=== PATIENT | female | born 1945 | race Caucasian/White ===

== ENCOUNTER → 2020-02-29 | Outpatient (CLI) | payer MEDICARE ==
[2020-02-29 11:13] LABS: Basophils % (A) 1 %; Eosinophils # (A) 0.1 k/uL (0-0.7); Eosinophils % (A) 3 %; HCT 39.9 % (34.0-46.0); HGB 12.4 gm/dL (11.4-16.0); Lymphocytes # (A) 1.1 k/uL (1.0-4.8); Lymphocytes % (A) 24 %; MCV 96.8 fL (80.0-100.0); Mean Platelet Volume 7.5; Monocytes # (A) 0.3 k/uL (0-1.0); Monocytes % (A) 6 %; Neutrophils # (A) 3.1 k/uL (1.3-7.7); Neutrophils % (A) 66 %; Platelet Count 210 k/uL (150-450); RBC 4.13 m/uL (3.80-5.40); RDW 12.8 % (11.5-15.5); WBC 4.8 k/uL (3.8-10.6)
[2020-02-29 16:46] LABS: % Iron Saturation 37.62 (12.00-45.00); African American GFR (CKD) 63.8 (60.0-200.0); Albumin 4.2 g/dL (3.80-4.90); Albumin/Globulin Ratio 1.91 (1.60-3.17); Anion Gap 8.3 mmol/L (4.00-12.00); Calcium 9.6 mg/dL (8.7-10.3); Carbon Dioxide 26.7 mmol/L (21.6-31.8); Globulin 2.2 g/dL (1.6-3.3); Non-African American GFR(CKD) 55.1 (60.0-200.0); Potassium 4.5 mmol/L (3.5-5.5); Total Bilirubin 0.6 mg/dL (0.2-1.2); Total Protein 6.4 g/dL (6.2-8.2)
[2020-02-29 16:54] LABS: Ferritin 130.3 ng/mL (10.0-291.0)
== END | disposition home or self-care (01) ==
LOC: LABWHC1 09:46
PROVIDERS: ATTEND Family Medicine
DX: D64.9 Anemia, unspecified (principal); R79.1 Abnormal coagulation profile
CPT/HCPCS: 36415; 80053; 82728; 83540; 83550; 85025; 85379

== ENCOUNTER 2021-05-21 19:58 | Emergency (ER) | payer MEDICARE ==
--- NOTE | 2021-05-21 21:14 | ED ---
SOB HPI - General Chief Complaint: Shortness of Breath Stated Complaint: COVID+,Weakness Time Seen by Provider: 05/21/21 20:54 Source: patient Mode of arrival: ambulatory Limitations: no limitations - History of Present Illness MD Complaint: shortness of breath, cough -: days(s) Severity scale (1-10): 0 Consistency: constant Improves With: nothing Worsens With: nothing Treatments Prior to Arrival: other - Related Data Home Medications Medication Instructions Recorded Confirmed Alendronate Sodium [Fosamax] 70 mg PO JOHNSON 05/21/21 05/21/21 Ipratropium Ang[place] 0.06%Nasal 1 spray EA NOSTRIL BID PRN 05/21/21 05/21/21 [Atrovent Nasal 0.06%] Levothyroxine Sodium [Synthroid] 100 mcg PO DAILY 05/21/21 05/21/21 Simvastatin [Zocor] 20 mg PO HS 05/21/21 05/21/21 Venlafaxine HCl [Effexor XR] 75 mg PO HS 05/21/21 05/21/21 lisinopriL 10 mg PO DAILY 05/21/21 05/21/21 Allergies Allergy/AdvReac Type Severity Reaction Status Date / Time No Known Allergies Allergy Verified 05/21/21 22:17 Review of Systems ROS Statement: Those systems with pertinent positive or pertinent negative responses have been documented in the HPI. ROS Other: All systems not noted in ROS Statement are negative. Past Medical History Past Medical History: Hypertension Additional Past Medical History / Comment(s): hypercholestremia, Hypythoridism, anxiety History of Any Multi-Drug Resistant Organisms: None Reported Past Surgical History: No Surgical Hx Reported Past Psychological History: Anxiety Smoking Status: Never smoker Past Alcohol Use History: None Reported Past Drug Use History: None Reported General Exam Limitations: no limitations General appearance: alert, in no apparent distress Head exam: Present: atraumatic, normocephalic Eye exam: Present: normal appearance. Absent: scleral icterus, conjunctival injection ENT exam: Present: normal oropharynx Neck exam: Present: normal inspection, full ROM. Absent: meningismus Respiratory exam: Present: normal lung sounds bilaterally. Absent: respiratory distress, wheezes, rales, rhonchi, stridor, accessory muscle use, decreased breath sounds, prolonged expiratory Cardiovascular Exam: Present: regular rate, normal rhythm, normal heart sounds. Absent: systolic murmur, diastolic murmur, rubs, gallop GI/Abdominal exam: Present: soft. Absent: distended, tenderness, guarding, rebound, rigid, mass Extremities exam: Present: normal inspection, normal capillary refill. Absent: pedal edema, calf tenderness Back exam: Present: normal inspection. Absent: CVA tenderness (R), CVA tenderness (L) Neurological exam: Present: alert Skin exam: Present: warm, dry, intact, normal color. Absent: rash Course Vital Signs 05/21/21 05/22/21 20:31 00:01 Temperature 98.8 F 99.6 F Pulse Rate 96 Respiratory 20 Rate Blood Pressure 151/80 151/69 O2 Sat by Pulse 96 Oximetry Medical Decision Making - Lab Data Lab Results 05/21/21 Range/Units 22:13 Coronavirus (PCR) Detected A (Not Detectd) Disposition Clinical Impression: COVID-19 Disposition: HOME SELF-CARE Condition: Good Instructions (If sedation given, give patient instructions): Coronavirus Disease 2019 (COVID-19) Is patient prescribed a controlled substance at d/c from ED?: No Referrals: Sally Lamar MD [Primary Care Provider] - 1-2 days
[2021-05-21] MEDS ORDERED: CASIRIVIMAB (REGN10933) (EUA) 600 MG, IMDEVIMAB (REGN10987) (EUA) 600 MG in SODIUM CHLO... IVPB ONE (23:15)
[2021-05-21] MEDS ORDERED: SODIUM CHLORIDE 0.9% 50 ML IVPB ONE (23:15)
[2021-05-22 00:01] VITALS: BP 151/69
[2021-05-22 01:29] VITALS: PULSE 93; RESP 18; TEMP 98.8
== END 2021-05-22 01:34 | disposition home or self-care (01) ==
LOC: EC 19:58
DX: U07.1 COVID-19 (principal); I10 Essential (primary) hypertension; F41.9 Anxiety disorder, unspecified; E03.9 Hypothyroidism, unspecified; E78.00 Pure hypercholesterolemia, unspecified
CPT/HCPCS: 99284; 87635; Q0243

== ENCOUNTER → 2021-09-26 | Outpatient (CLI) | payer MEDICARE ==
[2021-09-26 12:13] LABS: ALT 26 U/L (4-34); AST 28 U/L (14-36); African American GFR (CKD) 89 (>60 ml/min/1.73 sqM); Albumin 4.3 g/dL (3.5-5.0); Albumin/Globulin Ratio 1.6; Alkaline Phosphatase 65 U/L (38-126); Anion Gap 6 mmol/L; Blood Urea Nitrogen 20 mg/dL (7-17); Calcium 9.3 mg/dL (8.4-10.2); Carbon Dioxide 29 mmol/L (22-30); Chloride 103 mmol/L (98-107); Globulin 2.7 g/dL; Glucose 111 mg/dL (74-99); Non-African American GFR(CKD) 77 (>60 ml/min/1.73 sqM); Potassium 4.6 mmol/L (3.5-5.1); Sodium 138 mmol/L (137-145); Total Bilirubin 0.4 mg/dL (0.2-1.3)
[2021-09-26 12:19] LABS: T4, Free (Free Thyroxine) 1.06 ng/dL (0.78-2.19)
--- NOTE | 2021-09-26 13:07 | CT ---
EXAMINATION TYPE: CT angio chest DATE OF EXAM: 09/26/2021 12:54 PM COMPARISON: None HISTORY: Shortness of breath. History of covid. CT DLP: 443 mGycm Automated exposure control for dose reduction was used. CONTRAST: CTA scan of the thorax is performed with IV Contrast, patient injected with 59ml mL of Isovue 370, pu lmonary embolism protocol. . FINDINGS: LUNGS: The lungs are grossly clear, there is no concerning parenchymal mass or nodule identified. T here is no pleural effusion or pneumothorax seen. The tracheobronchial tree is patent. Biapical pleu ral thickening and areas of subpleural nodularity which are nonspecific measuring less than centimete r and too small to characterize. The 4 mm nodule right lower lobe axial image 67. The 4 mm nodule left upper lobe axial image through 7 mm calcified suggestive of granuloma. MEDIASTINUM: There is satisfactory enhancement of the pulmonary artery and its branches, there is no CT evidence for pulmonary embolism. There are no greater than 1 cm hilar or mediastinal lymph nodes. Mild atherosclerotic change of the aorta. Aorta of normal caliber and there is coronary artery calci fication. OTHER: Small hiatal hernia. Hypertrophic and degenerative changes spine. Chronic deformity of the po sterior rib cage on the right axial image 52 adjacent subpleural nodule. Calcification or metallic de nsity adjacent to the right margin of the distal esophagus is indeterminate. IMPRESSION: 1. No diagnostic evidence of pulmonary embolism. 2. Coronary artery calcification. Correlate for atherosclerotic disease. 3. Multiple subcentimeter pulmonary nodules similar recommend follow-up exam in 6 months to confirm s tability.
[2021-09-26 20:09] LABS: Basophils # (A) 0.03 X 10*3/uL (0.00-0.10); Basophils % (A) 0.5 %; Eosinophils # (A) 0.06 X 10*3/uL (0.04-0.35); Eosinophils % (A) 0.9 %; HGB 12.9 g/dL (12.0-15.0); Immature Grans, Automated 0.2 %; Lymphocytes # (A) 1.58 X 10*3/uL (0.90-5.00); Lymphocytes % (A) 24.8 %; MCH 29.5 pg (27.0-32.0); MCHC 31.5 g/dL (32.0-37.0); MCV 93.6 fL (80.0-97.0); Mean Platelet Volume 10.1 fL (9.5-12.2); Monocytes # (A) 0.59 X 10*3/uL (0.20-1.00); Monocytes % (A) 9.3 %; NRBC Per 100 WBC 0 /100 WBCS (0.0-0.0); Neutrophils % (A) 64.3 %; Platelet Count 210 X 10*3/uL (140-440); RBC 4.38 X 10*6/uL (4.10-5.20); RDW 13.2 % (11.5-14.5); WBC 6.37 X 10*3/uL (4.50-10.00)
[2021-09-26 21:36] LABS: Erythrocyte Sedimentation Rate 7 mm/Hr (0-30)
== END | disposition home or self-care (01) ==
LOC: RADCTMAIN 11:14
PROVIDERS: ATTEND Internal Medicine
DX: I25.10 Atherosclerotic heart disease of native coronary artery without angina pectoris (principal); R91.8 Other nonspecific abnormal finding of lung field
CPT/HCPCS: 85379; 84439; 80053; 85652; 82533; 84443; 85025; 82306; 86038; 71275; Q9967

== ENCOUNTER → 2022-04-25 | Outpatient (CLI) | payer MEDICARE ==
[2022-04-25 18:10] LABS: African American GFR (CKD) >90 (>60 ml/min/1.73 sqM); Blood Urea Nitrogen 20 mg/dL (7-17); Non-African American GFR(CKD) 84 (>60 ml/min/1.73 sqM)
--- NOTE | 2022-04-27 11:26 | CT ---
EXAMINATION TYPE: CT chest w con CT DLP: 264.9 mGycm, Automated exposure control for dose reduction was used. DATE OF EXAM: 04/25/2022 7:08 PM COMPARISON: CT Angio chest 09/26/2021 CLINICAL INDICATION:Female, 76 years old with history of R91.1 nodule;, Nodules on left lobe of lung TECHNIQUE: Multiple axial images were obtained through the chest. Sagittal and coronal reformats were created for review. Contrast used:70cc mL of Isovue 300 with IV Contrast. Oral contrast used: none. FINDINGS: LUNGS/ PLEURA: No focal consolidation, pneumothorax or pleural effusion. Stable right lower lobe calc ified granulomas. Stable left upper lobe calcified granuloma. No new or enlarging lymph nodes identif ied. Apical scarring most pronounced on the right. AIRWAY: Patent and unremarkable. HEART: Size within normal limits. MEDIASTINUM: No gross evidence of adenopathy. VASCULATURE: No aortic aneurysm. MUSCULOSKELETAL: No acute osseous abnormalities, multilevel disc degeneration changes throughout the spine. SOFT TISSUES/LYMPH NODES: Unremarkable. LOWER NECK: No significant findings. UPPER ABDOMEN: No significant findings. IMPRESSION: Stable calcified granulomas without evidence for new or enlarging pulmonary nodule. No follow-up CT r ecommended for these calcified granulomas.
== END | disposition home or self-care (01) ==
LOC: RADCTMAIN 17:14
PROVIDERS: ATTEND Internal Medicine
DX: J84.10 Pulmonary fibrosis, unspecified (principal)
CPT/HCPCS: 82565; 84520; 71260; 36415; Q9967

== ENCOUNTER → 2022-04-26 | Outpatient (CLI) | payer MEDICARE | END | disposition home or self-care (01) | LOC: LABWHC1 08:37 | PROVIDERS: ATTEND Internal Medicine | DX: E27.40 Unspecified adrenocortical insufficiency (principal) | CPT/HCPCS: 36415; 82533 ==

== ENCOUNTER 2022-08-27 09:35 | Observation (INO) | payer MEDICARE ==
--- NOTE | 2022-08-27 10:43 | CT ---
EXAMINATION TYPE: CT brain wo con for TPA DATE OF EXAM: 08/27/2022 COMPARISON: None HISTORY: 77-year-old female Right sided weakness, neuro deficits TECHNIQUE: Examination was done in axial plane without intravenous contrast. Coronal and sagittal r econstructions performed. CT DLP: 1102.3 mGycm Automated exposure control for dose reduction was used. FINDINGS: There is no evidence of acute intracranial hemorrhage, acute ischemic changes, mass, mass-effect, or extra-axial fluid collection. There is no effacement of cerebral sulci or basal subarachnoid cister ns. There is no hydrocephalus. There is no midline shift. Yu-white matter distinction is preserv ed. Benign bilateral basal ganglionic calcifications. Partially empty sella. Moderate patchy white matter hypodensities in both cerebral hemispheres suggesting changes of chronic small vessel ischemic disease. Suspect prior facets. Rightward nasal septal deviation. Scattered mild also thickening ethmoid air ce lls. Mastoid air cells well pneumatized. IMPRESSION: Moderate patchy burden of chronic small vessel ischemic disease. No acute intracranial abnormality se en.
[2022-08-27 10:46] LABS: Basophils % (A) 0 %; Eosinophils # (A) 0.2 k/uL (0-0.7); Eosinophils % (A) 5 %; HCT 40.8 % (34.0-46.0); HGB 13.6 gm/dL (11.4-16.0); Lymphocytes % (A) 22 %; MCH 30.5 pg (25.0-35.0); MCHC 33.4 g/dL (31.0-37.0); MCV 91.4 fL (80.0-100.0); Mean Platelet Volume 7.6; Monocytes # (A) 0.3 k/uL (0-1.0); Monocytes % (A) 6 %; Neutrophils # (A) 2.9 k/uL (1.3-7.7); Neutrophils % (A) 63 %; Platelet Count 179 k/uL (150-450); RBC 4.46 m/uL (3.80-5.40); WBC 4.5 k/uL (3.8-10.6)
--- NOTE | 2022-08-27 11:01 | CT ---
EXAMINATION TYPE: CT angio head neck DATE OF EXAM: 08/27/2022 COMPARISON: CT head same day HISTORY: 77-year-old female Right sided weakness TECHNIQUE: Contiguous axial scanning of the head a neck performed with IV Contrast, patient injected with 65 mL of Isovue 370. Coronal/sagittal MIP reconstructions performed. 3-D reconstructions generat ed on a dedicated independent workstation. CT DLP: 390.1 mGycm Automated exposure control for dose reduction was used. FINDINGS: NECK: Some mosaic attenuation and septal lines in the upper lungs. Consider small airways disease or mild p ulmonary vascular congestion. Bovine configuration to the aortic arch. Both vertebral arteries are codominant and patent throughout their course. The bilateral common and internal carotid arteries are widely patent by NASCET criteria. HEAD: The bilateral vertebral and basilar arteries are patent. 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 Otherwise, the posterior circulation appears patent. The internal carotid arteries and remainder of the anterior circulation is patent. No aneurysmal changes seen. Dural venous sinuses are patent. IMPRESSION: 1. NECK: WIDELY PATENT CAROTID AND VERTEBRAL ARTERIES OF THE NECK. SOME MOSAIC ATTENUATION AND SEPTAL LINES IN THE UPPER LUNGS. CONSIDER SMALL AIRWAYS DISEASE VERSUS MILD PULMONARY VASCULAR CONGESTION. 2. HEAD: NO LARGE VESSEL INTRACRANIAL ARTERIAL OCCLUSION, SIGNIFICANT STENOSIS, OR ANEURYSMAL CHANGES SEEN. 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
[2022-08-27 11:02] LABS: ALT 23 U/L (4-34); AST 28 U/L (14-36); African American GFR (CKD) >90 (>60 ml/min/1.73 sqM); Albumin 4.2 g/dL (3.5-5.0); Alkaline Phosphatase 71 U/L (38-126); Anion Gap 6 mmol/L; Blood Urea Nitrogen 24 mg/dL (7-17); Carbon Dioxide 27 mmol/L (22-30); Chloride 105 mmol/L (98-107); Glucose 118 mg/dL (74-99); Non-African American GFR(CKD) 84 (>60 ml/min/1.73 sqM); Potassium 4.8 mmol/L (3.5-5.1); Sodium 138 mmol/L (137-145); Total Bilirubin 0.5 mg/dL (0.2-1.3); Total Protein 6.8 g/dL (6.3-8.2)
[2022-08-27 11:40] LABS: Partial Thromboplastin Time 24.5 sec (22.0-30.0); Prothrombin Time 10.4 sec (9.0-12.0)
--- NOTE | 2022-08-27 12:22 | XR ---
EXAMINATION TYPE: XR chest 2V DATE OF EXAM: 08/27/2022 COMPARISON: None HISTORY: 77-year-old female confusion, altered mental status TECHNIQUE: AP and lateral views FINDINGS: Hazy densities relating to overlying soft tissue. Heart normal size. Aorta and pulmonary vasculature within normal limits. No consolidation or pleural effusion seen. IMPRESSION: No acute cardiopulmonary process.
--- NOTE | 2022-08-27 13:59 | ED ---
Neuro HPI - General Chief Complaint: Neuro Symptoms/Deficit Stated Complaint: right side weakness Time Seen by Provider: 08/27/22 09:48 Source: patient Mode of arrival: ambulatory Limitations: no limitations - History of Present Illness Is the patient presenting with stroke symptoms?: Yes Initial Comments: Patient complains of malaise and right-sided weakness. [facility] she is no longer weak. She has no chest or belly or back pain. She has no nausea or vomiting. She has no focal weakness. She has no paresthesias. - Related Data Home Medications: Home Medications Medication Instructions Recorded Confirmed Levothyroxine Sodium [Synthroid] 100 mcg PO MOTUWETHFRSA 05/21/21 08/27/22 Simvastatin [Zocor] 20 mg PO HS 05/21/21 08/27/22 lisinopriL [Prinivil] 10 mg PO DAILY 05/21/21 08/27/22 Alendronate Sodium [Fosamax] 70 mg PO JHONSON 08/27/22 08/27/22 Calcium Carbonate [Calcium] 1,200 mg PO HS 08/27/22 08/27/22 Multivitamins, Thera [Multivitamin 1 tab PO HS 08/27/22 08/27/22 (formulary)] Super B Complex W/ Vitamin C 1 tab PO QAM 08/27/22 08/27/22 Vitamin C/Biotin [Hair, Skin and 1 tab PO HS 08/27/22 08/27/22 Nails Chew] Allergies/Adverse Reactions: Allergies Allergy/AdvReac Type Severity Reaction Status Date / Time No Known Allergies Allergy Verified 08/27/22 11:16 Review of Systems ROS Statement: Those systems with pertinent positive or pertinent negative responses have been documented in the HPI. ROS Other: All systems not noted in ROS Statement are negative. General Exam Limitations: no limitations General appearance: alert, in no apparent distress Head exam: Present: atraumatic, normocephalic, normal inspection Eye exam: Present: normal appearance, PERRL, EOMI. Absent: scleral icterus, conjunctival injection, periorbital swelling ENT exam: Present: normal exam, mucous membranes moist Neck exam: Present: normal inspection. Absent: tenderness, meningismus, lymphadenopathy Respiratory exam: Present: normal lung sounds bilaterally. Absent: respiratory distress, wheezes, rales, rhonchi, stridor Cardiovascular Exam: Present: regular rate, normal rhythm, normal heart sounds. Absent: systolic murmur, diastolic murmur, rubs, gallop, clicks GI/Abdominal exam: Present: soft, normal bowel sounds. Absent: distended, tenderness, guarding, rebound, rigid Extremities exam: Present: normal inspection, full ROM, normal capillary refill. Absent: tenderness, pedal edema, joint swelling, calf tenderness Back exam: Present: normal inspection Neurological exam: Present: alert, oriented X3, CN II-XII intact Psychiatric exam: Present: normal affect, normal mood Skin exam: Present: warm, dry, intact, normal color. Absent: rash Stroke MDM - Lab Data Result diagrams: 08/27/22 10:22 08/27/22 10:22 Lab Results 08/27/22 08/27/22 08/27/22 Range/Units 10:22 10:22 10:22 WBC 4.5 (3.8-10.6) k/uL RBC 4.46 (3.80-5.40) m/uL Hgb 13.6 (11.4-16.0) gm/dL Hct 40.8 (34.0-46.0) % MCV 91.4 (80.0-100.0) fL MCH 30.5 (25.0-35.0) pg MCHC 33.4 (31.0-37.0) g/dL RDW 13.0 (11.5-15.5) % Plt Count 179 (150-450) k/uL MPV 7.6 Neutrophils % 63 % Lymphocytes % 22 % Monocytes % 6 % Eosinophils % 5 % Basophils % 0 % Neutrophils # 2.9 (1.3-7.7) k/uL Lymphocytes # 1.0 (1.0-4.8) k/uL Monocytes # 0.3 (0-1.0) k/uL Eosinophils # 0.2 (0-0.7) k/uL Basophils # 0.0 (0-0.2) k/uL PT 10.4 (9.0-12.0) sec INR 1.0 (<1.2) APTT 24.5 (22.0-30.0) sec Sodium 138 (137-145) mmol/L Potassium 4.8 (3.5-5.1) mmol/L Chloride 105 (98-107) mmol/L Carbon Dioxide 27 (22-30) mmol/L Anion Gap 6 mmol/L BUN 24 H (7-17) mg/dL Creatinine 0.69 (0.52-1.04) mg/dL Est GFR (CKD-EPI)AfAm >90 (>60 ml/min/1.73 sqM) Est GFR (CKD-EPI)NonAf 84 (>60 ml/min/1.73 sqM) Glucose 118 H (74-99) mg/dL Calcium 9.0 (8.4-10.2) mg/dL Total Bilirubin 0.5 (0.2-1.3) mg/dL AST 28 (14-36) U/L ALT 23 (4-34) U/L Alkaline Phosphatase 71 (38-126) U/L Troponin I (0.000-0.034) ng/mL Total Protein 6.8 (6.3-8.2) g/dL Albumin 4.2 (3.5-5.0) g/dL 08/27/22 Range/Units 10:22 WBC (3.8-10.6) k/uL RBC (3.80-5.40) m/uL Hgb (11.4-16.0) gm/dL Hct (34.0-46.0) % MCV (80.0-100.0) fL MCH (25.0-35.0) pg MCHC (31.0-37.0) g/dL RDW (11.5-15.5) % Plt Count (150-450) k/uL MPV Neutrophils % % Lymphocytes % % Monocytes % % Eosinophils % % Basophils % % Neutrophils # (1.3-7.7) k/uL Lymphocytes # (1.0-4.8) k/uL Monocytes # (0-1.0) k/uL Eosinophils # (0-0.7) k/uL Basophils # (0-0.2) k/uL PT (9.0-12.0) sec INR (<1.2) APTT (22.0-30.0) sec Sodium (137-145) mmol/L Potassium (3.5-5.1) mmol/L Chloride (98-107) mmol/L Carbon Dioxide (22-30) mmol/L Anion Gap mmol/L BUN (7-17) mg/dL Creatinine (0.52-1.04) mg/dL Est GFR (CKD-EPI)AfAm (>60 ml/min/1.73 sqM) Est GFR (CKD-EPI)NonAf (>60 ml/min/1.73 sqM) Glucose (74-99) mg/dL Calcium (8.4-10.2) mg/dL Total Bilirubin (0.2-1.3) mg/dL AST (14-36) U/L ALT (4-34) U/L Alkaline Phosphatase (38-126) U/L Troponin I <0.012 (0.000-0.034) ng/mL Total Protein (6.3-8.2) g/dL Albumin (3.5-5.0) g/dL - Medical Decision Making Patient presents with weakness. I did obtain independent history from a family member. I obtained a CT the head which was independent reviewed by me and read as showing evidence of old stroke, but no acute bleed or mass. Laboratory studies are interpreted by me as normal electrolytes and kidney functioning. I have placed a consultation to neurology. Given that the patient has had evidence of old stroke I would like to admit her. I had a discussion with the family and patient agree with the admission. 08/27/22 13:58 Twelve-lead EKG shows ventricular rate 96 bpm, normal GA interval and QRS complex, no ST elevation or depression, interpreted by me as normal sinus rhythm. Past Medical History Past Medical History: Hypertension Additional Past Medical History / Comment(s): hypercholestremia, Hypythoridism, anxiety , Covid History of Any Multi-Drug Resistant Organisms: None Reported Past Surgical History: No Surgical Hx Reported Past Psychological History: Anxiety Smoking Status: Never smoker Past Alcohol Use History: None Reported Past Drug Use History: None Reported Course Vital Signs 08/27/22 08/27/22 08/27/22 09:40 10:10 10:49 Temperature 98.2 F Pulse Rate 109 H 90 96 Respiratory 18 18 18 Rate Blood Pressure 149/82 115/57 O2 Sat by Pulse 96 96 94 L Oximetry 08/27/22 08/27/22 11:00 11:30 Temperature Pulse Rate 87 86 Respiratory 18 18 Rate Blood Pressure 128/65 126/65 O2 Sat by Pulse 92 L 93 L Oximetry Disposition Clinical Impression: Transient cerebral ischemia Disposition: ADMITTED IP TO THIS HOSP Condition: Fair Is patient prescribed a controlled substance at d/c from ED?: No Referrals: Sally Lamar MD [Primary Care Provider] - 1-2 days
[2022-08-27] MEDS ORDERED: ONDANSETRON 4 MG/2 ML VIAL IVP PRN (14:11)
[2022-08-27] MEDS ORDERED: MAG HYDROX/AL HYDROX/SIMETH 30 ML CUP PO PRN (14:11)
[2022-08-27] MEDS ORDERED: NALOXONE 0.4 MG/ML 1 ML VIAL IV PRN ×2 (14:11→15:44)
[2022-08-27] MEDS ORDERED: TEMAZEPAM 15 MG CAP PO PRN (14:11)
--- NOTE | 2022-08-27 15:49 | P.HPIM ---
History of Present Illness H&P Date: 08/27/22 Chief Complaint: TIA Patient is a 77-year-old female with history of hypertension, dyslipidemia, hypothyroidism presenting with strokelike symptoms. She claims that her daughter started to notice slow speech last night around 8:00. She went to bed at that time, woke up this morning with right-sided weakness. She denies any numbness. She is having difficulty walking due to lower extremity weakness. She denies any chest pain, shortness of breath, abdominal pain, nausea, vomiting, diarrhea, constipation, palpitations, lightheadedness, fevers, chills, recent travel history, or sick contacts. In the ED, her vital signs have been within normal limits. Laboratory workup mostly unremarkable except for elevated BUN at 24. EKG showed normal sinus rhy thm reviewed by me. CT head report showed moderate patchy burden of chronic small vessel ischemic disease, no acute intracranial abnormality seen. CTA head and neck no significant carotid, vertebral artery stenosis, or intracranial arterial occlusions. Chest x-ray showed no acute process. Patient seen and examined at bedside. Pertinent positives and negatives as discussed in HPI, a complete review of systems was performed and all other systems are negative. Vital signs reviewed General: nontoxic, no distress, appears at stated age Derm: warm, dry Head: atraumatic, normocephalic, symmetric Eyes: EOMI, no lid lag, anicteric sclera, pupils equal round reactive to light ENT: Nose and ears atraumatic Neck: No thyromegaly, supple Mouth: no lip lesion, mucus membranes moist Cardiovascular: S1S2 reg, no murmur, no edema Lungs: clear to auscultation bilateral, no rhonchi, no rales, no wheeze, no accessory muscle use Abdominal: soft, nontender to palpation, no guarding, no appreciable organomegaly Ext: no gross muscle atrophy, muscle strength muscle strength 5 out of 5 in all 4 extremities, no contractures Neuro: CN II-XII grossly intact Psych: Alert, oriented, appropriate affect Assessment/Plan: TIA -Neuro checks -Telemetry -A1c, TSH, lipid panel, echocardiogram -Neurology consult -Aspirin and statin - MRI pending Right groin pain - likely neuropathic - outpatient follow up Chronic medical problems: Hypertension Hypothyroidism HLD -Continue home medications The patient is admitted with an anticipated less than 2 midnight stay for evaluation of TIA. Surrogate decision-maker: Daughter CODE STATUS: Full code DVT prophylaxis: Subcu heparin Anticipated discharge date: tomorrow Anticipated discharge place: Home A total of 57 minutes was spent on the care of this complex patient more than 50% of the time was spent in counseling and care coordination. Past Medical History Past Medical History: Hypertension Additional Past Medical History / Comment(s): hypercholestremia, Hypythoridism, anxiety , Covid History of Any Multi-Drug Resistant Organisms: None Reported Past Surgical History: No Surgical Hx Reported Past Psychological History: Anxiety Smoking Status: Never smoker Past Alcohol Use History: None Reported Past Drug Use History: None Reported Medications and Allergies Home Medications Medication Instructions Recorded Confirmed Type Levothyroxine Sodium [Synthroid] 100 mcg PO MOTUWETHFRSA 05/21/21 08/27/22 History Simvastatin [Zocor] 20 mg PO HS 05/21/21 08/27/22 History lisinopriL [Prinivil] 10 mg PO DAILY 05/21/21 08/27/22 History Alendronate Sodium [Fosamax] 70 mg PO JOHNSON 08/27/22 08/27/22 History Calcium Carbonate [Calcium] 1,200 mg PO HS 08/27/22 08/27/22 History Multivitamins, Thera [Multivitamin 1 tab PO HS 08/27/22 08/27/22 History (formulary)] Super B Complex W/ Vitamin C 1 tab PO QAM 08/27/22 08/27/22 History Vitamin C/Biotin [Hair, Skin and 1 tab PO HS 08/27/22 08/27/22 History Nails Chew] Allergies Allergy/AdvReac Type Severity Reaction Status Date / Time No Known Allergies Allergy Verified 08/27/22 11:16 Physical Exam Vitals: Vital Signs Temp Pulse Resp BP Pulse Ox 08/27/22 11:30 86 18 126/65 93 L 08/27/22 11:00 87 18 128/65 92 L 08/27/22 10:49 96 18 115/57 94 L 08/27/22 10:10 90 18 96 08/27/22 09:40 98.2 F 109 H 18 149/82 96 Intake and Output 08/27/22 08/27/22 08/27/22 06:59 14:59 22:59 Other: Weight 72.575 kg Results CBC & Chem 7: 08/27/22 10:22 08/27/22 10:22 Labs: Abnormal Lab Results - Last 24 Hours (Table) 08/27/22 Range/Units 10:22 BUN 24 H (7-17) mg/dL Glucose 118 H (74-99) mg/dL
--- NOTE | 2022-08-27 16:22 | P.CNNES ---
History of Present Illness Consult date: 08/27/22 Requesting physician: Lee Mehta Reason for Consult: TIA History of Present Illness: This is a 77-year-old woman with medical history of hypertension, hypercholesteremia, hypothyroidism who presented emergency department because of right-sided weakness, visual disturbance. According to patient yesterday at night she had blurry vision out of the bilateral temporal region and she felt like there is quickly lines and denied any headache associated with it but she waved and off and she slept and she slept at 9 PM yesterday. When she woke up today around 9:00 in the morning she noticed that her right side is weak mostly the right lower than the upper and she felt like she was unsteady walk-in. Also the daughter stated that the patient was very slow talking but no slurring the speech or word finding difficulties or the words were coming out wrong. Patient again denied of any headache, any numbness and denied any visual disturbance activity. Her symptoms lasted for about an hour today and resolved. She feels back to baseline. She denies any history of TIA or stroke. She denies being on any anti-platelets or anticoagulation. She denies any history of atrial flutter fibrillation. Denies any history of seizures. Denies of any neck pain or lower back pain. Some of the workup during this hospital visit consisted of: CBC with differential on comp has a metabolic panel is unremarkable. CT of the head is reported as moderate patchy burden of chronic small vessel ischemic disease. No acute intracranial abnormality seen. I personally reviewed the CT of the head there is no acute subacute stroke and there is no intracranial hemorrhage. CT angiography of the head is reported as no large vessel intracranial arterial occlusion, significant stenosis or aneurysm changes seen. 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 CT angiography of the next reported as were widely patent carotid and vertebral arteries of the neck. Some was awake attenuation and septal line in the upper long consider small airway disease versus mild pulmonary vascular congestion. Review of Systems Review of system: The 12 point system was reviewed and apparent positive and negative per HPI. Past Medical History Past Medical History: Hypertension Additional Past Medical History / Comment(s): hypercholestremia, Hypythoridism, anxiety , Covid History of Any Multi-Drug Resistant Organisms: None Reported Past Surgical History: No Surgical Hx Reported Past Psychological History: Anxiety Smoking Status: Never smoker Past Alcohol Use History: None Reported Past Drug Use History: None Reported Medications and Allergies Home Medications Medication Instructions Recorded Confirmed Type Levothyroxine Sodium [Synthroid] 100 mcg PO MOTUWETHFRSA 05/21/21 08/27/22 History Simvastatin [Zocor] 20 mg PO HS 05/21/21 08/27/22 History lisinopriL [Prinivil] 10 mg PO DAILY 05/21/21 08/27/22 History Alendronate Sodium [Fosamax] 70 mg PO JOHNSON 08/27/22 08/27/22 History Calcium Carbonate [Calcium] 1,200 mg PO HS 08/27/22 08/27/22 History Multivitamins, Thera [Multivitamin 1 tab PO HS 08/27/22 08/27/22 History (formulary)] Super B Complex W/ Vitamin C 1 tab PO QAM 08/27/22 08/27/22 History Vitamin C/Biotin [Hair, Skin and 1 tab PO HS 08/27/22 08/27/22 History Nails Chew] Allergies Allergy/AdvReac Type Severity Reaction Status Date / Time No Known Allergies Allergy Verified 08/27/22 11:16 Physical Examination - Vital Signs Vital Signs: Vital Signs Temp Pulse Resp BP Pulse Ox 08/27/22 11:30 86 18 126/65 93 L 08/27/22 11:00 87 18 128/65 92 L 08/27/22 10:49 96 18 115/57 94 L 08/27/22 10:10 90 18 96 08/27/22 09:40 98.2 F 109 H 18 149/82 96 Intake and Output 08/27/22 08/27/22 08/27/22 06:59 14:59 22:59 Other: Weight 72.575 kg GENERAL: The patient is lying in bed and is not in acute distress. CHEST: The heart rate is regular rate rhythm. No murmurs to auscultation. LUNG: Clear to auscultation bilaterally no wheezing noted throughout. Not l abored breathing. ABDOMEN/GI: Bowel sounds present in all 4 quadrants. No tenderness to palpation throughout. NEUROLOGICAL: Higher mental function: The patient is awake, alert, oriented to self, place and time. Patient is following commands. No aphasia and no neglect. Cranial nerves: The pupils are round, equal and reactive to light and accommodation. Visual giles are full to confrontation throughout. Extraocular movement is intact no nystagmus is noted. Facial sensation is normal to touch throughout. The facial strength is normal throughout. Hearing is normal bilaterally to hand rub. Tongue is midline and moved [id number] without any difficulty. No dysarthria is noted. Shoulder shrug is normal bilaterally. Motor: Gait is normal. The strength is 5 over 5 throughout. Normal tone and bulk. Cerebellum: Normal finger to nose bilaterally. Sensation: Sensation is normal to touch throughout. Reflexes (right/left): 2+ throughout except ankles are 1+ bilaterally. Plantars are mute bilaterally. Results - Laboratory Findings CBC and BMP: 08/27/22 10:22 08/27/22 10:22 Abnormal Lab Findings: Abnormal Labs 08/27/22 10:22 BUN 24 H Glucose 118 H Assessment and Plan Assessment: Transient ischemic attack (initially had visual disturbance late last-night, and today had transient episode of right-sided weakness mostly right lower than upper and slow speech). Hypertension Hypercholestremia Hypothyroidism Plan: MRI the brain is ordered by the ED team is pending 2-D echo, lipid panel, TSH, hemoglobin A1c are ordered and pending Patient is started on aspirin 81 mg daily and Pavix 75mg daily (both new). Agent to be on dual antiplatelets for 21 days and after 21 days stop Plavix but continue aspirin indefinitely for secondary stroke prophylaxis. On Lipitor 40 mg daily at bedtime. Continue neuro checks Cardiac monitoring I consulted the PT and OT. If patient has anydifficulty and we'll get speech therapist involved but for now we'll hold off. We'll defer the rest of the medical management the primary team Upon discharge recommend the patient to follow-up with a neurologist as an outpatient within 1-2 weeks. The plan was discussed with the patient and her daughter was at bedside as well as the primary team. Thank you for consultation Time with Patient: Greater than 30
[2022-08-27] MEDS: ASPIRIN 81 MG PO SCH (16:40)
[2022-08-27] MEDS: HEPARIN SODIUM,PORCINE/PF 5,000 UNIT/0.5 ML SYRINGE SQ SCH ×3 (16:40→23:23)
[2022-08-27] MEDS: CLOPIDOGREL 75 MG TAB PO SCH (16:40)
[2022-08-27] MEDS ORDERED: MELATONIN 5 MG TABLET PO PRN (20:12)
[2022-08-27 20:19] VITALS: RESP 16
[2022-08-27] MEDS ORDERED: MULTIVITAMINS, THERA 1 EACH TAB PO SCH (21:00)
[2022-08-27] MEDS ORDERED: ATORVASTATIN 10 MG TAB PO SCH (21:00)
[2022-08-27] MEDS ORDERED: ATORVASTATIN 40 MG TAB PO SCH (21:00)
[2022-08-27] MEDS ORDERED: NON FORMULARY DRUG (Vitamin C/Biotin [Hair, Skin And Nails Chew] 1 EACH Tab.Chew) PO SCH (21:00)
[2022-08-28 03:54] VITALS: TEMP 97.8
[2022-08-28] MEDS ORDERED: LEVOTHYROXINE 100 MCG TAB PO SCH (06:30)
[2022-08-28] MEDS: CLOPIDOGREL 75 MG TAB PO SCH (08:15)
[2022-08-28] MEDS: ASPIRIN 81 MG PO SCH (08:15)
[2022-08-28] MEDS: HEPARIN SODIUM,PORCINE/PF 5,000 UNIT/0.5 ML SYRINGE SQ SCH (08:15)
[2022-08-28] MEDS ORDERED: lisinopriL 10 MG TAB PO SCH (09:00)
[2022-08-28] MEDS ORDERED: VITAMIN C PO SCH (09:00)
[2022-08-28] MEDS ORDERED: SUPER B COMPLEX PO SCH (09:00)
[2022-08-28 09:32] VITALS: BP 115/68; PULSE 88
[2022-08-28 12:49] LABS: Chol/HDL Ratio 2.75 Ratio; LDL Cholesterol,Calculated 87.2 mg/dL (0.0-131.0)
--- NOTE | 2022-08-28 14:25 | P.PN ---
Subjective Progress Note Date: 08/28/22 Hospital Course: 77-year-old female with history of hypertension, dyslipidemia, hypothyroidism presenting with strokelike symptoms. In the ED, her vital signs have been within normal limits. Laboratory workup mostly unremarkable except for elevated BUN at 24. EKG showed normal sinus rhythm reviewed by me. CT head report showed moderate patchy burden of chronic small vessel ischemic disease, no acute intracranial abnormality seen. CTA head and neck no significant carotid, vertebral artery stenosis, or intracranial arterial occlusions. Chest x-ray showed no acute process. Patient admitted for TIA. Neurology was consulted. Patient started on aspirin, statin, and Plavix. Echocardiogram and MRI pending. Subjective: Patient seen and examined at bedside. No acute events overnight. She denies any new neurological symptoms. Pertinent positives and negatives as discussed above, a complete review of systems was performed and all other systems are negative. Vitals Signs Reviewed. General: nontoxic, no distress, appears at stated age Derm: warm, dry Head: atraumatic, normocephalic, symmetric Eyes: EOMI, no lid lag, anicteric sclera Mouth: no lip lesion, mucus membranes moist Cardiovascular: S1S2 reg, no murmur Lungs: CTA bilateral, no rhonchi, no rales , no accessory muscle use Abdominal: soft, nontender to palpation, no guarding, no appreciable organomegaly Ext: no gross muscle atrophy, no edema, no contractures Neuro: CN II-XI grossly intact, no focal neuro deficits Psych: Alert, oriented, appropriate affect Assessment and Plan: TIA -Neuro checks -Telemetry -Echocardiogram and MRI pending -Neurology consult -Aspirin, Plavix and statin Right groin pain - likely neuropathic - outpatient follow up Prediabetes -A1c 6.2 -Outpatient follow-up Chronic medical problems: Hypertension Hypothyroidism HLD -Continue home medications DVT ppx: Subcu heparin Code status: Full code Anticipated discharge place: Home Anticipated discharge time: Today Or tomorrow Objective - Vital Signs Vital signs: Vital Signs Temp 97.8 F 08/28/22 07:45 Pulse 88 08/28/22 07:45 Resp 16 08/28/22 07:45 BP 115/68 08/28/22 07:45 Pulse Ox 95 08/28/22 12:13 FiO2 Intake & Output 08/27/22 08/28/22 08/28/22 18:59 06:59 18:59 Intake Total 120 236 Output Total 0 Balance 120 0 236 Weight 72.575 kg Intake: Oral 120 236 Output: Emesis 0 Other: # Voids 1 1 - Labs CBC & Chem 7: 08/27/22 10:22 08/27/22 10:22 Labs: Abnormal Lab Results - Last 24 Hours (Table) 08/27/22 08/27/22 Range/Units 10:22 10:22 Hemoglobin A1c 6.2 H (0.0-6.0) % HDL Cholesterol 67.00 H (40.00-60.00) mg/dL
--- NOTE | 2022-08-28 14:49 | MR ---
EXAMINATION TYPE: MR brain wo con DATE OF EXAM: 08/28/2022 COMPARISON: 08/27/2022 CT HISTORY: TIA CONTRAST: Performed utilizing 0 mL intravenous Gadavist gadolinium contrast. TECHNIQUE: Multiplanar, multiecho imaging on a 3.0 Dolores magnet is performed through the brain. Stud y is performed within 24 hours of arrival to the hospital. The craniovertebral junction is normal. The pituitary is normal. Optic chiasm is Normal. Diffusion-weighted imaging is performed. No abnormal hyperintensity is present to suggest an acute i ntracranial infarct or acute ischemic change. There is increased signal within the brainstem on T2-weighted sequences. Multiple scattered periventr icular and deep white matter hyperintensities are present on T2 weighted sequences. Findings likely r elated to chronic microvascular ischemic change. Ventricles and sulci are appropriate for the patient age. No suspicious enhancement is evident. IMPRESSIONS: 1. Chronic appearing periventricular and deep white matter ischemic-type changes. Some additional chr onic appearing white matter changes are within the brainstem. 2. No acute intracranial process evident.
--- NOTE | 2022-08-28 15:07 | CA ---
Transthoracic Echo Report Name: Jessica Thornton Age: 77 Gender: F : 1945 Exam Date: 08/28/2022 09:04 Exam Location: [facility] Ht (in): 64 Wt (lb): 160 Ordering Physician: Stewart Jimenez MD Attending/Referring Phys: International Logistics Manager Kusum Merida RDCS Procedure CPT: Indications: tia Cardiac Hx: Technical Quality: Good Contrast 1: Total Dose (mL): Contrast 2: Total Dose (mL): MEASUREMENTS (Male / Female) Normal Values 2D ECHO LV Diastolic Diameter PLAX 4.6 cm 4.2 - 5.9 / 3.9 - 5.3 cm LV Systolic Diameter PLAX 3.3 cm IVS Diastolic Thickness 1.0 cm 0.6 - 1.0 / 0.6 - 0.9 cm LVPW Diastolic Thickness 1.0 cm 0.6 - 1.0 / 0.6 - 0.9 cm LV Relative Wall Thickness 0.5 RV Internal Dim ED PLAX 2.5 cm LA Systolic Diameter LX 3.6 cm 3.0 - 4.0 / 2.7 - 3.8 cm LV Diastolic Volume MOD BP 59.4 cm??? 67 - 155 / 56 - 104 cm??? LV Systolic Volume MOD BP 23.1 cm??? 22 - 58 / 19 - 49 cm??? LV Ejection Fraction MOD BP 61.1 % >= 55 % LV Diastolic Volume MOD 4C 61.4 cm??? LV Systolic Volume MOD 4C 24.3 cm??? LV Ejection Fraction MOD 4C 60.4 % LV Diastolic Length 4C 6.5 cm LV Systolic Length 4C 5.3 cm LV Diastolic Volume MOD 2C 54.2 cm??? LV Systolic Volume MOD 2C 22.0 cm??? LV Ejection Fraction MOD 2C 59.5 % LV Diastolic Length 2C 6.1 cm LV Systolic Length 2C 5.2 cm M-MODE Aortic Root Diameter MM 3.4 cm LA Systolic Diameter MM 4.0 cm LA Ao Ratio MM 1.2 AV Cusp Separation MM 1.7 cm DOPPLER AV Peak Velocity 141.0 cm/s AV Peak Gradient 8.0 mmHg AI Peak Velocity 123.8 cm/s AI Peak Gradient 6.1 mmHg AI Pressure Half Time 324.8 ms LVOT Peak Velocity 102.8 cm/s LVOT Peak Gradient 4.2 mmHg MV Area PHT 8.9 cm??? MR Peak Velocity 533.2 cm/s MR Peak Gradient 113.7 mmHg Mitral E Point Velocity 51.8 cm/s Mitral A Point Velocity 80.4 cm/s Mitral E to A Ratio 0.6 MV Deceleration Time 85.0 ms TR Peak Velocity 277.5 cm/s TR Peak Gradient 30.8 mmHg PV Peak Velocity 76.4 cm/s PV Peak Gradient 2.3 mmHg FINDINGS Left Ventricle Mildly increased septal wall thickness. Mildly increased posterior wall thickness. Mild concentric left ventricular hypertrophy. Left ventricular ejection fraction is estimated at 55-60 %. Right Ventricle Normal right ventricular size and function. Right Atrium Normal right atrial size. Left Atrium Left atrial size at the upper limits of normal. Mitral Valve Mitral valve thickened. Moderate mitral regurgitation. Aortic Valve Trileaflet aortic valve. Thickened aortic valve without stenosis. Trace aortic regurgitation. Tricuspid Valve [id number] tricuspid regurgitation. Pulmonic Valve Structurally normal pulmonic valve. Pericardium No pericardial effusion. Aorta Normal size aortic root and proximal ascending aorta. CONCLUSIONS LVH with preserved systolic function 3+ tricuspid regurgitation Previewed by: Dr. Charlie Frias MD (Electronically Signed) Final Date: 28 August 2022 15:06
--- NOTE | 2022-08-28 15:21 | P.PN ---
Subjective Progress Note Date: 08/28/22 The patient is seen at bedside and she states that she continues to be doing better. Denies of any new neurological deficit. She was walking with physical therapy without any issues. Objective - Vital Signs Vital signs: Vital Signs Temp 97.8 F 08/28/22 07:45 Pulse 88 08/28/22 07:45 Resp 16 08/28/22 07:45 BP 115/68 08/28/22 07:45 Pulse Ox 95 08/28/22 12:13 FiO2 Intake & Output 08/27/22 08/28/22 08/28/22 18:59 06:59 18:59 Intake Total 120 236 Output Total 0 Balance 120 0 236 Weight 72.575 kg Intake: Oral 120 236 Output: Emesis 0 Other: # Voids 1 1 - Exam GENERAL: The patient is lying in bed and is not in acute distress. NEUROLOGICAL: Higher mental function: The patient is awake, alert, oriented to self, place and time. Patient is following commands. No aphasia and no neglect. Cranial nerves: The pupils are round, equal and reactive to light and accommodation. Visual giles are full to confrontation throughout. Extraocular movement is intact no nystagmus is noted. Facial sensation is normal to touch throughout. The facial strength is normal throughout. Hearing is normal bilaterally to hand rub. Tongue is midline and moved [id number] without any difficulty. No dysarthria is noted. Shoulder shrug is normal bilaterally. Motor: The strength is 5 over 5 throughout. Normal tone and bulk. Cerebellum: Normal finger to nose bilaterally. Sensation: Sensation is normal to touch throughout. Reflexes (right/left): 2+ throughout except ankles are 1+ bilaterally. Plantars are mute bilaterally. Some of the workup during this hospital visit consisted of: CBC with differential on comp has a metabolic panel is unremarkable. Lipid panel is a triglyceride 149, cholesterol 184, LDLs 87 and the HDL is 67 TSH is 1.[address] of the head is reported as moderate patchy burden of chronic small vessel ischemic disease. No acute intracranial abnormality seen. I personally reviewed the CT of the head there is no acute subacute stroke and there is no intracranial hemorrhage. CT angiography of the head is reported as no large vessel intracranial arterial occlusion, significant stenosis or aneurysm changes seen. 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 CT angiography of the next reported as were widely patent carotid and vertebral arteries of the neck. Some was awake attenuation and septal line in the upper long consider small airway disease versus mild pulmonary vascular congestion. MR the brain is reported as chronic appearing. Ventricular and deep white matter ischemic type changes. Some additional chronic-appearing white matter changes are within the brainstem. No acute intracranial processes evident. I personally reviewed the MRI and I agree with report. 2-D echo was reported as left intraoperative who presents cell function. 3+ tricuspid regurgitation. Left atrial size at the upper limits of normal. - Labs CBC & Chem 7: 08/27/22 10:22 08/27/22 10:22 Labs: Abnormal Lab Results - Last 24 Hours (Table) 08/27/22 08/27/22 Range/Units 10: 10:22 Hemoglobin A1c 6.2 H (0.0-6.0) % HDL Cholesterol 67.00 H (40.00-60.00) mg/dL Assessment and Plan Assessment: Transient ischemic attack (initially had visual disturbance late last-night, and today had transient episode of right-sided weakness mostly right lower than upper and slow speech). Patient has multiple risk factor for TIA/stroke Borderline diabetes mellitus Hypertension Hypercholestremia Hypothyroidism Plan: Patient is started on aspirin 81 mg daily and Pavix 75mg daily (both new). To be on dual antiplatelets for 21 days and after 21 days stop Plavix but continue aspirin indefinitely for secondary stroke prophylaxis. On Lipitor 40 mg daily at bedtime. Patient has multiple risk factors of stroke and needs to have her risk factors controlled. MR the brain is negative for acute or subacute ischemic stroke. Continue neuro checks Cardiac monitoring PT and OT. We'll defer the rest of the medical management the primary team Upon discharge recommend the patient to follow-up with a neurologist as an outpatient within 1-2 weeks. No further neurological work-up and is clear from neurological perspective. Time with Patient: Less than 30
--- NOTE | 2022-08-28 16:02 | P.DS ---
Providers Date of admission: 08/27/22 14:11 Expected date of discharge: 08/28/22 Attending physician: Stewart Jimenez MD Consults: 08/27/22 14:12 Consult Physician Routine Consulting Provider: Saul Saravia Consult Reason/Comments: TIA Do you want consulting provider notified?: Yes Primary care physician: Sally [place] Hospital Course: Discharge Diagnosis: TIA Prediabetes Right groin pain Hypertension Hypothyroidism Dyslipidemia Moderate to severe TR Hospital Course: 77-year-old female with history of hypertension, dyslipidemia, hypothyroidism presenting with strokelike symptoms. In the ED, her vital signs have been within normal limits. Laboratory workup mostly unremarkable except for elevated BUN at 24. EKG showed normal sinus rhythm reviewed by me. CT head report showed moderate patchy burden of chronic small vessel ischemic disease, no acute intracranial abnormality seen. CTA head and neck no significant carotid, vertebral artery stenosis, or intracranial arterial occlusions. Chest x-ray showed no acute process. Patient admitted for TIA. Neurology was consulted. Patient started on aspirin, statin, and Plavix. A1c was 6.2. Echocardiogram showed LVH with preserved systolic function, 3+ TR. MRI showed chronic periventricular and deep white matter ischemic type changes, no acute process. Patient to follow-up with neurology and cardiology as an outpatient. Patient seen and examined at bedside. Vital signs reviewed and stable. General: nontoxic, no distress, appears at stated age Derm: warm, dry Head: atraumatic, normocephalic, symmetric Eyes: EOMI, no lid lag, anicteric sclera Mouth: no lip lesion, mucus membranes moist Cardiovascular: S1S2 reg, no murmur Lungs: CTA bilateral, no rhonchi, no rales , no accessory muscle use Abdominal: soft, nontender to palpation, no guarding, no appreciable organomegaly Ext: no gross muscle atrophy, no edema, no contractures Neuro: CN II-XI grossly intact, no focal neuro deficits Psych: Alert, oriented, appropriate affect A total of 33 minutes of time were spent preparing this complex discharge summary. Patient was discharged on 08/28/22 at 15:56. Patient Condition at Discharge: Stable Plan - Discharge Summary Discharge Rx Participant: No New Discharge Prescriptions: New Rosuvastatin [Crestor] 10 mg PO DAILY #60 tablet Aspirin 81 mg PO DAILY #60 tab Clopidogrel [Plavix] 75 mg PO DAILY #20 tab Continue Levothyroxine Sodium [Synthroid] 100 mcg PO MOTUWETHFRSA Vitamin C/Biotin [Hair, Skin and Nails Chew] 1 tab PO HS Super B Complex W/ Vitamin C 1 tab PO QAM lisinopriL [Prinivil] 10 mg PO DAILY Alendronate Sodium [Fosamax] 70 mg PO JOHNSON Multivitamins, Thera [Multivitamin (formulary)] 1 tab PO HS Calcium Carbonate [Calcium] 1,200 mg PO HS Discontinued Simvastatin [Zocor] 20 mg PO HS Discharge Medication List Levothyroxine Sodium [Synthroid] 100 mcg PO MOTUWETHFRSA 05/21/21 [History] lisinopriL [Prinivil] 10 mg PO DAILY 05/21/21 [History] Alendronate Sodium [Fosamax] 70 mg PO JOHNSON 08/27/22 [History] Calcium Carbonate [Calcium] 1,200 mg PO HS 08/27/22 [History] Multivitamins, Thera [Multivitamin (formulary)] 1 tab PO HS 08/27/22 [History] Super B Complex W/ Vitamin C 1 tab PO QAM 08/27/22 [History] Vitamin C/Biotin [Hair, Skin and Nails Chew] 1 tab PO HS 08/27/22 [History] Aspirin 81 mg PO DAILY #60 tab 08/28/22 [Rx] Clopidogrel [Plavix] 75 mg PO DAILY #20 tab 08/28/22 [Rx] Rosuvastatin [Crestor] 10 mg PO DAILY #60 tablet 08/28/22 [Rx] Follow up Appointment(s)/Referral(s): Sally Lamar MD [Primary Care Provider] - 1-2 days Sapphire Bailey MD [Medical Doctor] - 1 Week Oscar Rocha MD [STAFF PHYSICIAN] - 1 Week Patient Instructions/Handouts: Tricuspid Regurgitation (DC), Transient Ischemic Attack (DC) Activity/Diet/Wound Care/Special Instructions: Please follow up with Neurology. Please follow up with cardiology for further monitoring for heart valve. Discharge Disposition: HOME SELF-CARE
[2022-08-31] MEDS ORDERED: NON FORMULARY DRUG (Alendronate Sodium [Fosamax] 70 MG Tablet) PO SCH (09:00)
== END 2022-08-28 16:40 | disposition home or self-care (01) ==
LOC: EC 09:35 → 6NMEDSUR 14:11
PROVIDERS: ADMIT Student in an Organized Health Care Education/Training Program; ATTEND Student in an Organized Health Care Education/Training Program
DX: G45.9 Transient cerebral ischemic attack, unspecified (principal); R73.03 Prediabetes; R10.31 Right lower quadrant pain; R79.89 Other specified abnormal findings of blood chemistry; I10 Essential (primary) hypertension; E78.5 Hyperlipidemia, unspecified; E78.00 Pure hypercholesterolemia, unspecified; F41.9 Anxiety disorder, unspecified; E03.9 Hypothyroidism, unspecified; Z86.16 Personal history of COVID-19; I07.1 Rheumatic tricuspid insufficiency; Z79.890 Hormone replacement therapy; Z79.899 Other long term (current) drug therapy
CPT/HCPCS: 96372 ×2; 99285; 36415; 94760; 93005; 93306; 97162; 97165; 80061; 80053; 84443; 84484; 85025; 85610; 85730; 83036; 71046; 70496; 70450; 70498; 70551; G0378 ×2; Q9967; J1644 ×2

== ENCOUNTER → 2023-08-18 | Outpatient (CLI) | payer MEDICARE ==
--- NOTE | 2023-08-18 17:36 | P.SLEEP ---
History of Present Illness H&P Date: 08/18/23 This is a 78-year-old female patient is coming in for chronic fatigue and sleepiness. This is a chronic problem and over the years the patient has been treated with Provigil for daytime stimulation. She did not have any diagnosis for any sleep breathing disorder or any other sleep disorder. She has been able to manage well till she was infected with Covid 19 back in June 2022 and overall she got infected with Covid 19 twice. Note that following her initial infection with Covid 19, her symptoms of chronic fatigue and sleepiness became worse. Currently she is sleeping around 11 hours. She is going to bed at around 9 PM and she is getting out of bed at 8 AM in the morning. She feels non-refreshed and she has no energy and she can't take naps during the day. No clear history of snoring. No restlessness in her lower extremities. No sleepwalking or sleep talking. No anxiety or panic attacks. She has history of chronic depression and she has been treated with Lexapro for many years. She also has history of hypothyroidism, currently on thyroid hormone replacement. 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 No head trauma. No substance abuse. She does not drink alcohol. She is currently . She drinks one bottle of Coke every day. No intake of any other caffeinated beverages. No reported cough or sputum production. No chest pain. No cardiac vascular disease. She remains on Plavix. She is a nose breather. Her home environment is quite comfortable. No grinding of the teeth. No nocturia. No issues with insomnia. Review of Systems Constitutional: Reports fatigue Eyes: denies as per HPI, denies blurred vision, denies bulging eye, denies decreased vision, denies diplopia, denies discharge, denies dry eye, denies irritation, denies itching, denies pain, denies photophobia, denies loss of peripheral vision, denies loss of vision, denies tunnel vision/blind spots Ears: deny: decreased hearing, ear discharge, earache, tinnitus Ears, nose, mouth and throat: Reports as per HPI Breasts: absent: as per HPI, change in shape, gynecomastia, masses, nipple discharge, pain, skin changes, swelling Cardiovascular: Reports as per HPI Respiratory: Reports as per HPI Gastrointestinal: Reports as per HPI Genitourinary: Reports as per HPI Menstruation: Reports as per HPI Musculoskeletal: Reports as per HPI Musculoskeletal: absent: ankle pain, ankle stiffness, ankle swelling, as per HPI, elbow pain, elbow stiffness, elbow swelling, foot pain, foot stiffness, foot swelling, hand pain, hand stiffness, hand swelling, hip pain, hip stiffness, hip swelling, knee pain, knee stiffness, knee swelling, shoulder pain, shoulder stiffness, shoulder swelling, wrist pain, wrist stiffness, wrist swelling Integumentary: Reports as per HPI Neurological: Reports as per HPI Psychiatric: Reports as per HPI Endocrine: Reports fatigue Hematologic/Lymphatic: Reports as per HPI Allergic/Immunologic: Reports as per HPI Past Medical History Past Medical History: Hypertension Additional Past Medical History / Comment(s): hypercholestremia, Hypythoridism, anxiety , Covid History of Any Multi-Drug Resistant Organisms: None Reported Past Surgical History: No Surgical Hx Reported Additional Past Surgical History / Comment(s): hysterectomy Past Psychological History: Anxiety Smoking Status: Never smoker Past Alcohol Use History: None Reported Past Drug Use History: None Reported Medications and Allergies Home Medications Medication Instructions Recorded Confirmed Type Levothyroxine Sodium [Synthroid] 100 mcg PO MOTUWETHFRSA 05/21/21 08/27/22 History lisinopriL [Prinivil] 10 mg PO DAILY 05/21/21 08/27/22 History Alendronate Sodium [Fosamax] 70 mg PO JOHNSON 08/27/22 08/27/22 History Calcium Carbonate [Calcium] 1,200 mg PO 08/27/22 08/27/22 History Multivitamins, Thera [Multivitamin 1 tab PO 08/27/22 08/27/22 History (formulary)] Super B Complex W/ Vitamin C 1 tab PO QAM 08/27/22 08/27/22 History Vitamin C/Biotin [Hair, Skin and 1 tab PO HS 08/27/22 08/27/22 History Nails Chew] Aspirin 81 mg PO DAILY #60 tab 08/28/22 Rx Clopidogrel [Plavix] 75 mg PO DAILY #20 tab 08/28/22 Rx Rosuvastatin [Crestor] 10 mg PO DAILY #60 tablet 08/28/22 Rx Allergies Allergy/AdvReac Type Severity Reaction Status Date / Time scopolamine AdvReac Hallucinati Verified 08/27/22 16:41 ons Physical Exam BP is 135/71, pulse is 87, respirations 12, temperature is 98.2, weight is 166, pulse ox is 97% on room air, BMI 28, The patient appeared well nourished and normally developed. Vital signs as documented. Head exam is unremarkable. No scleral icterus or corneal arcus noted. Neck is without jugular venous distension, thyromegaly, or carotid bruits. Carotid upstrokes are brisk bilaterally. Lungs are clear to auscultation and percussion. Cardiac exam reveals the PMI to be normally sized and situated. Rhythm is regular. First and second heart sounds normal. No murmurs, rubs or gallops. Abdominal exam reveals normal bowel sounds, no masses, no organomegaly and no aortic enlargement. Extremities are nonedematous and both femoral and pedal pulses are normal.Examination of the skin revealed no evidence of significant rashes, suspicious appearing nevi or other concerning lesions.Neurologically, the patient is awake and alert and the patient does not have any focal neurological deficit. Cranial nerves are essentially intact. Assessment and Plan Plan: Chronic fatigue/sleepiness. Current [place] score is 3. The patient has chronic issues with fatigue and tiredness. Could be related to chronic depression. Covid 19 infection that occurred in June 2022 major symptoms worsen the patient is currently struggling with those symptoms. Based on that, the patient was referred to me to evaluate her sleep quality. Overall clinical suspicion for obstructive sleep apnea is low. This needs to be further investigated. The patient has been treated with Provigil in the past Covid 19 infection in June 2022 in 2022 Hypothyroidism Chronic depression Osteoporosis History of CVA without any significant neurological deficits Plan Will proceed with screening polysomnogram to evaluate this patient's sleep architecture, rule out any underlying sleep breathing disorder. Continue same medication including antidepressants Continue daytime stimulation with caffeinated beverages We'll make further recommendation will consider treating this patient with Provigil if there is no significant abnormalities noted and the patient is quite symptomatic and she has responded to Provigil in the past. Sleep Note - Sleep Note Sleep Note: Temperature: Pulse Rate: Respiratory Rate: Blood Pressure: SpO2: Height: Weight: BMI: Neck Circumference:
== END ==
LOC: 3 N SLEEP 13:32
PROVIDERS: ATTEND Internal Medicine Critical Care Medicine
DX: R53.82 Chronic fatigue, unspecified (principal); F32.A Depression, unspecified; E03.9 Hypothyroidism, unspecified; E78.00 Pure hypercholesterolemia, unspecified; F41.9 Anxiety disorder, unspecified; M81.0 Age-related osteoporosis without current pathological fracture; G47.10 Hypersomnia, unspecified; Z86.73 Personal history of transient ischemic attack (TIA), and cerebral infarction without residual deficits; Z86.16 Personal history of COVID-19; Z88.8 Allergy status to other drugs, medicaments and biological substances; Z79.890 Hormone replacement therapy; Z79.02 Long term (current) use of antithrombotics/antiplatelets; Z79.82 Long term (current) use of aspirin
CPT/HCPCS: 99211

== ENCOUNTER 2023-09-14 18:53 | Outpatient (CLI) | payer MEDICARE ==
--- NOTE | 2023-09-21 22:57 | P.PCN ---
Date of Procedure: 09/14/23 Operative Findings: Polysomnography report Date of services 09/14/2023 Pertinent history 78-year-old female patient with symptoms of chronic fatigue and sleepiness. This is a chronic problems been going on for many years and she has been treated with Provigil for daytime stimulation. She does not carry a diagnosis of sleep apnea. She has been able to manage well till she got infected with COVID-19 in June 2022 and since then she has been experiencing chronic fatigue and sleepiness and for now the patient is sleeping approximately 11 hours and she is not getting refreshed. For that reason, the patient was referred to be evaluated for sleep breathing disorder. My overall clinical suspicion for obstructive sleep apnea was quite low. She is known to have depression, hypothyroidism, osteoporosis and previous history of CVA without having any significant residual neurologic dysfunction Pertinent physical findings The patient's body mass index is 28 with a height of 5 feet and 5 inches and the weight of 166 pounds Technical description The patient was studied using a standard complex polysomnography protocol that included recording of the 2 EKG, Central, occipital and frontal EEG, right and left outer canthus EOG, submental EMG, right and left anterior tibialis EMG, respiratory airflow by thermocouple and or pressure/flow transducer, respiratory efforts by abdominal and thoracic PVDF belts, oxygen saturation by cable oximetry. Position by observation synchronized the PSG. Equipment used: [employer]. Sleep architecture This patient had a total recording duration of 4 and 72 minutes of the total sleep time was 149 minutes. Sleep efficiency was surprisingly low at 52.8%. The latency to sleep onset was 106 minutes and latency to REM sleep was 390 minutes. The sleep architecture was characterized by 23.5% stage I, 78.3% stage II, 0% stage III and 0 0.4% of sleep. The total arousal index was 29.2. The wake after sleep onset time was 124 minutes Sleep continuity summary The patient had a total of 121 arousals with an index of 29.2. Respiratory arousal index was 2.4 Periodic limb movements summary the patient had a total of 36. Regular movements with arousals with index of 8.7 Cardiac summary Average heart rate was 67 with a minimum heart rate of 64 and a maximum heart rate of 73 Respiratory summary The sleep study showed a total of 43 obstructive events of which 0 were obstructive apneas, 0 mixed apneas and 43 were obstructive hypopneas and the patient is overall apnea-hypopnea index was 9.6. No central events were noted. The patient's disease remained unchanged during REM sleep with the caveat that there are sleep was quite limited during the sleep study Oxygenation analysis The average pulse ox when the patient was awake was 95%, the minimum pulse ox was 85% during non-REM sleep and the patient spent approximately 3 minutes of sleep time below pulse ox of 89% Assessment Mild obstructive sleep apnea with an AHI of 9.6 Mild nocturnal oxygen saturation Occasional. Regular movements resulting in arousals Sleep fragmentation with an elevated arousal index of 29.2 Chronic fatigue/sleepiness Poor sleep efficiency with a delayed sleep onset and abnormal sleep architecture with absent REM Hypertension Hypothyroidism Hyperlipidemia Chronic depression History of CVA without any significant neurological deficits Plan I am not certain that the patient's symptoms are related to obstructive sleep apnea. The patient sleep apnea is mild and the patient's AHI was only at 9.6. Nevertheless, the patient has significant sleep fragmentation which could be related to her comorbidities including history of depression. Creatinine was also contributing to some extent to her sleep fragmentation. I am quite surprised that the patient demonstrated low sleep efficiency and there is also an obvious abnormality sleep architecture with absent or markedly diminished REM sleep. As such, I am not certain the patient is going to respond nicely to CPAP therapy. It may be worthwhile to give her a titration to assess for response to CPAP therapy and to make a decision if this will be a value for her on long-term basis. I would recommend a CPAP titration prior to committing to long-term CPAP therapy.
== END 2023-09-15 05:47 | disposition home or self-care (01) ==
LOC: 3 N SLEEP 18:53
PROVIDERS: ATTEND Internal Medicine Critical Care Medicine
DX: G47.33 Obstructive sleep apnea (adult) (pediatric) (principal); G47.36 Sleep related hypoventilation in conditions classified elsewhere; G47.8 Other sleep disorders; R53.82 Chronic fatigue, unspecified; G47.10 Hypersomnia, unspecified; G47.21 Circadian rhythm sleep disorder, delayed sleep phase type; I10 Essential (primary) hypertension; E03.9 Hypothyroidism, unspecified; E78.5 Hyperlipidemia, unspecified; F32.A Depression, unspecified; M81.0 Age-related osteoporosis without current pathological fracture; Z86.73 Personal history of transient ischemic attack (TIA), and cerebral infarction without residual deficits; Z88.8 Allergy status to other drugs, medicaments and biological substances; Z79.899 Other long term (current) drug therapy; Z79.82 Long term (current) use of aspirin; Z79.02 Long term (current) use of antithrombotics/antiplatelets; Z79.890 Hormone replacement therapy
CPT/HCPCS: 95810

== ENCOUNTER 2023-10-18 19:13 | Outpatient (CLI) | payer MEDICARE ==
--- NOTE | 2023-10-20 17:03 | P.PCN ---
Date of Procedure: 10/18/23 Operative Findings: CPAP titration report Date of services 10/18/2023 Pertinent history 78-year-old female patient with symptomatic obstructive sleep apnea with an AHI of 9.6. The patient is coming in for his for a CPAP titration study Technical description The patient was studied using a standard complex polysomnography protocol that included recording of the 2 EKG, Central, occipital and frontal EEG, right and left outer canthus EOG, submental EMG, right and left anterior tibialis EMG, respiratory airflow by thermocouple and or pressure/flow transducer, respiratory efforts by abdominal and thoracic PVDF belts, oxygen saturation by cable oximetry. Position by observation synchronized the PSG. Plan was CPAP titration was done to eliminate obstructive respiratory events. Equipment used: [employer]. Sleep characteristics The total time in bed was 417 minutes. The total sleep time was 276 minutes and overall sleep efficiency was 66.2%. The latency to sleep onset was 78.5 minutes. The latency to REM sleep was 146.5 minutes. The sleep architecture was catheterized by 9.1% stage I, 87.1% stage II, 0% stage III, and 5.8% REM sleep. The wake after sleep onset time was 64.5 minutes. The total arousal next was 17.6 Respiratory analysis CPAP titration was started at a pressure of 5 cm of water and the pressure was increased to 6 cm of water. This was successful titration and there was completed ablation of the obstructive respiratory events. Note that there was minimal REM sleep noted and the patient assumed various body position including supine body position. Oxygenation was stable and there was complete illumination of obstructive respiratory events and a CPAP pressure of 16 m of water. Sleep continuity summary The total arousal index was 17.6 with a number of arousals is being at 81. Respiratory arousal index was 0 Periodic movement events A total of 267 periodic limb movement activity with an index of 58. There were 24 periodic limb movement activity with arousals with an index of 5.2 Cardiac summary Average heart rate was 67 with a minimum heart rate of 65 and max 171 Assessment Mild obstructive sleep apnea with an AHI of 9.6, the patient underwent a successful CPAP titration. Mild nocturnal oxygen saturation Sleep fragmentation with an elevated arousal index, improved with CPAP therapy Chronic fatigue/sleepiness Poor sleep efficiency with a delayed sleep onset and abnormal sleep architecture with absent REM Hypertension Hypothyroidism Hyperlipidemia Chronic depression History of CVA without any significant neurological deficits Plan Recommend to initiate CPAP therapy at a pressure of 6 cm of water. patient is going to be given a AirFit F20 fullface mask medium size. The patient was seen back in the office in 30 to 90 days to assess clinical response and compliancy.
== END 2023-10-19 05:30 | disposition home or self-care (01) ==
LOC: 3 N SLEEP 19:13
PROVIDERS: ATTEND Internal Medicine Critical Care Medicine
DX: G47.33 Obstructive sleep apnea (adult) (pediatric) (principal); G47.36 Sleep related hypoventilation in conditions classified elsewhere; G47.10 Hypersomnia, unspecified; R53.82 Chronic fatigue, unspecified; I10 Essential (primary) hypertension; G47.8 Other sleep disorders; E03.9 Hypothyroidism, unspecified; E78.5 Hyperlipidemia, unspecified; F32.A Depression, unspecified; G47.61 Periodic limb movement disorder; G47.21 Circadian rhythm sleep disorder, delayed sleep phase type; Z86.73 Personal history of transient ischemic attack (TIA), and cerebral infarction without residual deficits; Z88.8 Allergy status to other drugs, medicaments and biological substances; Z79.82 Long term (current) use of aspirin; Z79.899 Other long term (current) drug therapy; Z79.890 Hormone replacement therapy; Z79.02 Long term (current) use of antithrombotics/antiplatelets
CPT/HCPCS: 95811